=== PATIENT | male | born 1965 | race Two or more races ===

== ENCOUNTER → 2017-06-03 | Day surgery (SDC) | payer BC ==
[~2017-06-03] MED LIST: LIDOCAINE 1% PF 2 ML VIAL. ID; MORPHINE SULFATE 4 MG/ML DISP.SYRIN. IV; ONDANSETRON PF 4 MG/2 ML VIAL. IV; PROCHLORPERAZINE 10 MG/2 ML VIAL. IV; PROPOFOL 40 ML IV; fentaNYL PF VIAL 100 MCG/2 ML VIAL IV
[2017-06-03] MEDS: IV RINGERS,LACTATED 1000ML 1,000 ML IV (07:52)
== END | disposition home or self-care (01) ==
LOC: ENDOS 07:10
DX: Z12.11 Encounter for screening for malignant neoplasm of colon (principal); Z79.899 Other long term (current) drug therapy
CPT/HCPCS: 45378; J2704